=== PATIENT | female | born 1935 | race Caucasian/White ===

== ENCOUNTER 2018-02-12 20:37 | Inpatient (IN) | payer OTHER ==
[~2018-02-12] VITALS: Ht 167.6 cm; Wt 108.1 kg
[~2018-02-12 20:37] MED LIST: ALBU0.63 NEB; ALBU2.5V NEB; ALPR0.257 PO; ALPR0.5T6 PO; AMIO200T42 PO; APIX5TAB PO; ASPI-496 PO; AZIT250T89 PO; BENA20TA2 PO; BENA5TAB2 PO; BUDE10.2 INH; CARV12.52 PO; CLOP75TA PO; FLUT1AER INH; FURO-93 PO; FURO20TA3 PO; FURO40TA6 PO; GABA-826 PO; HYDR-3240 PO; IPRA4AER INH; ISOS30TA8 PO; LAMI1TAB OP; LEVO75TA5 PO; METO25TA35 PO; PARO20TA4 PO; POTA10TA11 PO; POTA20TA89 PO; PRED5TAB PO; SIMV40TA3 PO; SIMV80TA3 PO; TIOT18CA INH; magnesium PO
[2018-02-12 20:58] LABS: BASOPHILS # (AUTO) 0.01 x10^3/uL (0-0.1); BASOPHILS % (AUTO) 0 % (0-1); EOSINOPHILS # (AUTO) 0.25 x10^3/uL (0-0.4); EOSINOPHILS % (AUTO) 3 % (1-7); LYMPHOCYTES # (AUTO) 1.28 x10^3/uL (1-3.4); LYMPHOCYTES % (AUTO) 16 % (22-44); MD NO; MEAN CORPUSCULAR HEMOGLOBIN 30.7 pg (27.0-34.8); MEAN CORPUSCULAR HGB CONC 33.3 g/dL (32.4-35.8); MEAN CORPUSCULAR VOLUME 92.3 fL (80-100); MEAN PLATELET VOLUME 8.5 fL (7.4-10.4); MONOCYTES # (AUTO) 0.78 x10^3/uL (0.2-0.8); MONOCYTES % (AUTO) 10 % (2-9); NEUTROPHILS # (AUTO) 5.92 x10^3/uL (1.8-6.8); NEUTROPHILS % (AUTO) 72 % (42-75); PLATELET COUNT 181 x10^3/uL (130-400); RED BLOOD COUNT 4.73 x10^6/uL (3.82-5.3); RED CELL DISTRIBUTION WIDTH 14.8 % (9.6-15.2)
[2018-02-12 21:07] LABS: INTERNATIONAL NORMALIZED RATIO 1.04 (0.93-1.1); PROTHROMBIN TIME 10.8 Seconds (9.6-11.5)
[2018-02-12] MEDS ORDERED: MIDAZOLAM 1 MG/ML, 5ML ONE (21:07)
[2018-02-12] MEDS ORDERED: FENTANYL PF 100 MCG/2ML ONE (21:07)
[2018-02-12] MEDS ORDERED: NITROGLYCERIN 5 MG/ML, 10ML ONE (21:08)
[2018-02-12] MEDS ORDERED: LIDOCAINE 2%, 20ML ONE (21:08)
[2018-02-12] MEDS ORDERED: VERAPAMIL 2.5 MG/ML, 2ML ONE (21:08)
[2018-02-12] MEDS ORDERED: HEPARIN 1,000 UNITS/ML, 10ML ONE (21:08)
[2018-02-12] MEDS ORDERED: BIVALIRUDIN 250 MG ONE (21:08)
[2018-02-12] MEDS ORDERED: TICAGRELOR 90 MG TABLET ONE (21:08)
[2018-02-12] MEDS ORDERED: SODIUM CHLORIDE FLUSH 10ML SYR IVF PRN (21:30)
[2018-02-12] MEDS ORDERED: SODIUM CHLORIDE 0.9% 1,000 ML IV SCH ×2 (21:41→21:55)
[2018-02-12] MEDS ORDERED: HEPARIN 5,000 UNITS/ML, 1ML SQ SCH (22:00)
[2018-02-12] MEDS ORDERED: morphine SULFATE 10 MG/ML, 1ML IVPush PRN (22:00)
[2018-02-12] MEDS ORDERED: POLYETHYLENE GLYCOL 17 GM PACKET PO PRN (22:00)
[2018-02-12] MEDS ORDERED: hydrALAzine 20 MG/ML, 1ML IVPush PRN (22:00)
[2018-02-12] MEDS ORDERED: ONDANSETRON 2MG/ML, 2ML IVPush PRN (22:00)
[2018-02-12] MEDS ORDERED: ENALAPRILAT 1.25 MG/ML, 2ML IVPush PRN (22:00)
[2018-02-12] MEDS ORDERED: BISACODYL 10 MG SUPP PR PRN (22:00)
[2018-02-12 22:07] VITALS: BP 98/72
[2018-02-12 22:57] LABS: ANION GAP 8 mmol/L (5-15); CALCIUM 8.2 mg/dL (8.5-10.1); CHLORIDE 106 mmol/L (98-107)
[2018-02-12] MEDS ORDERED: APIXABAN/HEPARIN MC SCH (23:00)
[2018-02-12] MEDS ORDERED: XANAX MC SCH (23:00)
[2018-02-12 23:02] LABS: HEMOGLOBIN A1C 5.7 % (4.2-6.3)
[2018-02-12 23:08] LABS: CREATININE 0.98 mg/dL (0.55-1.02); FREE T4 (FREE THYROXINE) 1.23 ng/dL (0.76-1.46); THYROID STIMULATING HORMONE 0.424 mIU/L (0.358-3.740)
[2018-02-12] MEDS: DOXYCYCLINE 100MG TABLET PO SCH (23:18)
[2018-02-12] MEDS: methylPREDNISolone SOD SUCC 125 MG/2 ML IVPush SCH (23:18)
[2018-02-13] MEDS ORDERED: GUAIFENESIN/COD200MG-20MG/10ML LIQUID PO PRN (00:30)
[2018-02-13] MEDS ORDERED: [UNRECOGNIZED DRUG - REMARK] MC SCH (00:30)
[2018-02-13] MEDS ORDERED: GUAIFENESIN/DM 100-10MG, 5ML UDC ONE (00:30)
[2018-02-13] MEDS: GUAIFENESIN 100 MG/5 ML, 5ML UDC PO PRN ×4 (00:54→23:05)
[2018-02-13] MEDS: APIXABAN 5 MG TABLET PO SCH ×3 (00:55→19:27)
[2018-02-13] MEDS: METOPROLOL TARTRATE 25 MG TABLET PO SCH ×3 (00:55→19:28)
[2018-02-13] MEDS ORDERED: ALBUTEROL SULFATE 2.5 MG/3 ML ONE (01:51)
[2018-02-13] MEDS ORDERED: ALBUTEROL SULFATE 2.5 MG/3 ML NPPB PRN (02:00)
[2018-02-13 02:35] VITALS: BP 118/83
[2018-02-13 03:00] LABS: MICROSCOPIC NOT IND
[2018-02-13 03:15] LABS: CULTURE INDICATED? NO
[2018-02-13] MEDS: methylPREDNISolone SOD SUCC 125 MG/2 ML IVPush SCH ×4 (04:49→23:05)
[2018-02-13 05:52] LABS: ALANINE AMINOTRANSFERASE 35 U/L (12-78); ALBUMIN 3.6 g/dL (3.4-5.0); ANION GAP 7 mmol/L (5-15); CALCIUM 8.7 mg/dL (8.5-10.1); CHLORIDE 110 mmol/L (98-107); CHOLESTEROL, TOTAL 159 mg/dL (140-239); CREATININE 0.93 mg/dL (0.55-1.02)
[2018-02-13 05:57] LABS: ALKALINE PHOSPHATASE 105 U/L (45-117); BILIRUBIN,TOTAL 0.9 mg/dL (0.2-1.0); CHOL/HDL RATIO 3.5; HDL CHOL % 28 % (28-40); HDL CHOLESTEROL (DIRECT) 45 mg/dL (40-60); LDL CHOLESTEROL,CALCULATED 99 mg/dL (54-169); LDL/HDL RATIO 2.2 (0.5-3.0); TOTAL PROTEIN 7.3 g/dL (6.4-8.2); TRIGLYCERIDES 76 mg/dL (50-200); TROPONIN I 0.019 ng/mL (0.000-0.045); VLDL CHOLESTEROL 15 mg/dL (0-25)
[2018-02-13 06:00] LABS: MEAN CORPUSCULAR HEMOGLOBIN 31.4 pg (27.0-34.8); MEAN CORPUSCULAR HGB CONC 34.1 g/dL (32.4-35.8); MEAN PLATELET VOLUME 9.4 fL (7.4-10.4); PLATELET COUNT 195 x10^3/uL (130-400); RED BLOOD COUNT 4.53 x10^6/uL (3.82-5.3); RED CELL DISTRIBUTION WIDTH 14.8 % (9.6-15.2)
[2018-02-13 06:35] VITALS: BP 136/84
[2018-02-13 06:56] LABS: BASOPHILS % (AUTO) 0 % (0-1); EOSINOPHILS # (AUTO) 0.01 x10^3/uL (0-0.4); EOSINOPHILS % (AUTO) 0 % (1-7); LYMPHOCYTES # (AUTO) 0.65 x10^3/uL (1-3.4); LYMPHOCYTES % (AUTO) 6 % (22-44); MD SCAN; MONOCYTES # (AUTO) 0.25 x10^3/uL (0.2-0.8); MONOCYTES % (AUTO) 2 % (2-9); NEUTROPHILS # (AUTO) 9.84 x10^3/uL (1.8-6.8); NEUTROPHILS % (AUTO) 91 % (42-75)
[2018-02-13] MEDS: ALBUTEROL SULFATE 2.5 MG/3 ML NPPB SCH ×4 (07:30→18:58)
[2018-02-13] MEDS: DOXYCYCLINE 100MG TABLET PO SCH ×2 (08:34→19:27)
[2018-02-13] MEDS: SENNA/DOCUSATE TABLET PO SCH (08:35)
[2018-02-13] MEDS ORDERED: LEVOTHYROXINE 75 MCG TABLET PO SCH (09:00)
[2018-02-13] MEDS ORDERED: PAROXETINE 20 MG TABLET PO SCH (09:00)
[2018-02-13] MEDS: FLUTICASONE/VILANTEROL 200-25MCG/INH INH SCH (09:01)
[2018-02-13] MEDS: ACETAMINOPHEN 325 MG TABLET PO PRN ×2 (12:46→19:27)
[2018-02-13] MEDS: OXYcodone IR 5MG TABLET PO PRN ×2 (12:46→19:27)
[2018-02-13] MEDS ORDERED: FUROSEMIDE 20 MG/2 ML IV ONE (13:30)
[2018-02-13 14:07] VITALS: BP 118/72
[2018-02-13] MEDS ORDERED: CALCIUM CARBONATE 500 MG TAB.CHEW PO ONE (18:00)
[2018-02-13] MEDS: SIMVASTATIN 40 MG TABLET PO SCH (19:27)
[2018-02-13] MEDS: PAROXETINE 20 MG TABLET PO SCH (19:27)
[2018-02-13 19:43] VITALS: BP 116/75
[2018-02-14 01:05] VITALS: BP 125/78
[2018-02-14] MEDS: methylPREDNISolone SOD SUCC 125 MG/2 ML IVPush SCH ×2 (04:59→11:41)
[2018-02-14] MEDS: GUAIFENESIN 100 MG/5 ML, 5ML UDC PO PRN (04:59)
[2018-02-14 05:35] LABS: ANION GAP 10 mmol/L (5-15); CALCIUM 8.9 mg/dL (8.5-10.1); CHLORIDE 103 mmol/L (98-107)
[2018-02-14 05:38] LABS: MEAN CORPUSCULAR HEMOGLOBIN 30.5 pg (27.0-34.8); MEAN CORPUSCULAR HGB CONC 33.4 g/dL (32.4-35.8); MEAN CORPUSCULAR VOLUME 91.2 fL (80-100); MEAN PLATELET VOLUME 8.7 fL (7.4-10.4); PLATELET COUNT 210 x10^3/uL (130-400); RED BLOOD COUNT 4.43 x10^6/uL (3.82-5.3)
[2018-02-14 05:38] LABS: CREATININE 1.13 mg/dL (0.55-1.02)
[2018-02-14 05:57] LABS: MD YES
[2018-02-14 05:58] LABS: BANDS%(MANUAL) 5 % (0-7); LYMPH#(MANUAL) 0.66 x10^3/uL (1-3.4); LYMPHS% (MANUAL) 3 % (22-44); MONOS#(MANUAL) 0.66 x10^3/uL (0.3-2.7); MONOS% (MANUAL) 3 % (2-9); SEG#(MANUAL) 19.58 x10^3/uL (1.8-6.8); SEGS% (MANUAL) 89 % (42-75)
[2018-02-14 05:59] LABS: <PLATELET ESTIMATE> ADEQUATE; <PLT MORPHOLOGY> NORMAL PLT MORPH; <RBC MORPHOLOGY> NORMAL
[2018-02-14] MEDS: ALBUTEROL SULFATE 2.5 MG/3 ML NPPB SCH ×4 (06:40→19:16)
[2018-02-14 08:00] VITALS: BP 163/92
[2018-02-14] MEDS ORDERED: LEVOTHYROXINE 75 MCG TABLET PO SCH (08:00)
[2018-02-14] MEDS ORDERED: GUAIFENESIN ER 600 MG TABLET ONE (08:57)
[2018-02-14] MEDS: APIXABAN 5 MG TABLET PO SCH ×2 (08:58→21:53)
[2018-02-14] MEDS: SENNA/DOCUSATE TABLET PO SCH (08:58)
[2018-02-14] MEDS: DOXYCYCLINE 100MG TABLET PO SCH ×2 (08:58→21:53)
[2018-02-14] MEDS: GUAIFENESIN ER 600 MG TABLET PO SCH ×2 (08:58→21:53)
[2018-02-14] MEDS: METOPROLOL TARTRATE 25 MG TABLET PO SCH ×2 (08:58→21:52)
[2018-02-14] MEDS: FLUTICASONE/VILANTEROL 200-25MCG/INH INH SCH (08:59)
[2018-02-14] MEDS ORDERED: BENA5TAB2 PO (12:08)
[2018-02-14 12:11] VITALS: BP 133/83
[2018-02-14] MEDS ORDERED: DOXY100T PO (12:25)
[2018-02-14] MEDS ORDERED: PRED20TA PO (12:25)
[2018-02-14] MEDS: BENAZEPRIL 5 MG TABLET PO SCH (12:51)
[2018-02-14 13:55] VITALS: BP 117/79
[2018-02-14 19:53] VITALS: BP 121/70
[2018-02-14] MEDS: PAROXETINE 20 MG TABLET PO SCH (21:52)
[2018-02-14] MEDS: SIMVASTATIN 40 MG TABLET PO SCH (21:53)
[2018-02-14] MEDS: OXYcodone IR 5MG TABLET PO PRN (21:53)
[2018-02-15 03:48] VITALS: BP 141/94
[2018-02-15] MEDS: ALBUTEROL SULFATE 2.5 MG/3 ML NPPB SCH (07:10)
[2018-02-15 07:15] VITALS: BP 138/85
[2018-02-15] MEDS ORDERED: FUROSEMIDE 40 MG TABLET PO SCH (09:00)
[2018-02-15] MEDS: BENAZEPRIL 5 MG TABLET PO SCH (09:00)
[2018-02-15] MEDS ORDERED: POTASSIUM CHLORIDE 20 MEQ TAB.ER.PRT PO SCH (09:00)
[2018-02-15] MEDS: SENNA/DOCUSATE TABLET PO SCH (09:00)
[2018-02-15] MEDS: APIXABAN 5 MG TABLET PO SCH (09:15)
[2018-02-15] MEDS: DOXYCYCLINE 100MG TABLET PO SCH (09:15)
[2018-02-15] MEDS: GUAIFENESIN ER 600 MG TABLET PO SCH (09:15)
[2018-02-15] MEDS: METOPROLOL TARTRATE 25 MG TABLET PO SCH (09:16)
[2018-02-15] MEDS: FLUTICASONE/VILANTEROL 200-25MCG/INH INH SCH (09:27)
[2018-02-15] MEDS ORDERED: CEFTRIAXONE PMX 1GM/50ML 50 ML IV SCH (12:00)
[2018-02-15] MEDS ORDERED: DOXY100T PO (13:21)
[2018-02-15] MEDS ORDERED: PRED20TA PO (13:21)
[2018-02-15] MEDS ORDERED: CEFD300C37 PO (13:24)
== END 2018-02-15 15:00 | disposition hospice, home (50) | DRG 286 ==
LOC: ED 21:29 → EDIP 21:41 → 5SO 22:02
PROVIDERS: ADMIT Internal Medicine; ATTEND Internal Medicine
PROC: 4A023N7 Measurement of Cardiac Sampling and Pressure, Left Heart, Percutaneous Approach (ICD-10-PCS; principal; 2018-02-12)
PROC: B2111ZZ Fluoroscopy of Multiple Coronary Arteries using Low Osmolar Contrast (ICD-10-PCS; 2018-02-12)
PROC: B2151ZZ Fluoroscopy of Left Heart using Low Osmolar Contrast (ICD-10-PCS; 2018-02-12)
DX: I11.0 Hypertensive heart disease with heart failure (principal); J96.20 Acute and chronic respiratory failure, unspecified whether with hypoxia or hypercapnia; D68.69 Other thrombophilia; I25.82 Chronic total occlusion of coronary artery; J44.1 Chronic obstructive pulmonary disease with (acute) exacerbation; I45.2 Bifascicular block; I50.33 Acute on chronic diastolic (congestive) heart failure; I25.10 Atherosclerotic heart disease of native coronary artery without angina pectoris; I48.0 Paroxysmal atrial fibrillation; E03.9 Hypothyroidism, unspecified; E66.9 Obesity, unspecified; E78.5 Hyperlipidemia, unspecified; G47.33 Obstructive sleep apnea (adult) (pediatric); F32.9 Major depressive disorder, single episode, unspecified; F41.9 Anxiety disorder, unspecified; G89.29 Other chronic pain; I48.2 Chronic atrial fibrillation; M19.90 Unspecified osteoarthritis, unspecified site; T38.0X5A Adverse effect of glucocorticoids and synthetic analogues, initial encounter; Z51.5 Encounter for palliative care; Z79.82 Long term (current) use of aspirin; Z80.9 Family history of malignant neoplasm, unspecified; Z82.49 Family history of ischemic heart disease and other diseases of the circulatory system; Z86.73 Personal history of transient ischemic attack (TIA), and cerebral infarction without residual deficits; I25.2 Old myocardial infarction; Z87.891 Personal history of nicotine dependence; Z95.0 Presence of cardiac pacemaker; Z95.5 Presence of coronary angioplasty implant and graft
CPT/HCPCS: 36415; 71045; 80047; 80048; 80053; 80061; 81003; 83036; 83735; 84439; 84443; 84484; 85025; 85610; 85730; 87040; 87070; 87077; 87205; 93005; 94640; 99285; J0583; J1644; J2250; J3010; J3490; J7613; J1940; J2930; J7030; J7512